=== PATIENT | male | born 1945 | race Caucasian/White ===

== ENCOUNTER 2025-11-17 10:00 | Emergency (ER) | payer OTHER, SELFPAY ==
--- OUTSIDE RECORDS SUMMARY | 2025-11-17 10:02 | XMS_ITS | Encounter Summary ---
Author Organization [facility] Address [address] [place] [address] Care Team Providers Care Cherry Picker Operator Name Role Phone Shiraz Reed MD Unavailable [phone] Aubrey Vanegas MD Primary Care Provider Cl Bourgeois MD Primary Care Provider [phone] Reason for Referral * Consultation (Routine) - Closed Specialty Diagnoses / Procedures Referred By Contac t Referred To Contact Internal Medicine Diagnoses Encounter for generalized [place] [address] [address] Phone: tel: fax: [place] [id number] [address] Phone: tel: fax: Referral ID Status Reason Start Date Expiration Date V isits Requested Visits Authorized [id number] Closed Specialty Services Required 08/11/2021 08/11/2022 99 99 Encounter Details Date Type Department Care Team (Latest Contact Info) Description 08/12/2021 Order Software Technical Lead [facility] [id number] [facility] [address] [place] [id number] [place] [id number] [address] Encounter for generalized patient complaints (Primary Dx) Social History Tobacco Use Types Packs/Day Years Used Date Smoking Tobacco: Former Cigarettes 1.5 30 1 970 - 2000 Smokeless Tobacco: Never Alcohol Use Standard Drinks/Week Comments Yes 14 (1 standard drink = 0.6 oz pu re alcohol) PHQ-2 Answer Date Recorded PHQ-2 Score 0 01/06/2021 Sex and Gender Information Value Date Recorded Sex Assigned at Not on file Legal Sex Male 11:34 AM PDT Gender Identity Male 11/18/2018 3:17 PM PST Sexual Orientation Not on file COVID-19 Exposure Response Date Recorded In the last month, have you been in contact with someone who was confirmed or suspected to have Coronavirus / COVID-19? No / Unsure 07/19/2021 10:51 AM PDT documented as of this encounter Plan of Treatment Scheduled Referrals Name Type Priority Associated Diagnoses Orde r Schedule Ambulatory referral to Rheumatology Outpatient Referral Routine Encounter for generalized patient complaints Ordered: 08/12/2021 documented as of this encounter Visit Diagnoses Diagnosis Encounter for generalized patient complaints- Primary documented in this encounter Care Teams Cherry Picker Operator Relationship Specialty Start [place] [address] [address] PCP - General Internal Medicine 07/15/18 12/01/24 Cl Bourgeois MD [address], [facility] [address] [place] [address] PCP - General Family Medicine 12/02/24 Shiraz Reed MD Consulting Physician Dermatology 12/11/17 documented as of this encounter
--- NOTE | 2025-11-17 10:24 | DI.RAD.S_ITS ---
PROCEDURE: XR WRIST RT MIN 3V INDICATIONS: injury TECHNIQUE: 4 views of the wrist were acquired. COMPARISON: None. FINDINGS AND IMPRESSION: No acute displaced fracture. No dislocation. Chondrocalcinosis at the TFCC region. Age-indeterminate bone fragments adjacent to the distal scaphoid. 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 If there is high concern for occult injury, consider repeat radiography in about 7 days or cross-sectional imaging. Dictated by: Griffin Briscoe M.D. on 11/17/2025 at 11:17 Approved by: Griffin Briscoe M.D. on 11/17/2025 at 11:18
[2025-11-17 10:26] VITALS: BP 153/79; PULSE 78; RESP 18; TEMP 36.7; O2SAT 97; BMI 28.7
--- NOTE | 2025-11-17 12:03 | ED_ITS ---
HPI - Extremity Injury (Upper) General Chief Complaint: Extremity Injury, Upper Stated Complaint: RT WRIST PX POSS BROKEN/STRAIN Time Seen by Provider: 11/17/25 11:36 Source: patient Mode of arrival: Family Vehicle History of Present Illness HPI narrative: Mr. Flores is a very pleasant 80-year-old male with no reported past medical history presents to the emergency department for right wrist injury that occurred yesterday. Patient was using a power drill when the bit got stuck causing the drill to start spinning while he continued to hold onto it. Therefore his wrist got twisted/spun around. Since that he has had pain and swelling of the right wrist. Pain is primarily at the base of the thumb. No open wounds. No numbness tingling weakness of the fingers. He does have pain with flexion extension of the wrist and with movement of the thumb. No blood thinners. No prior injury to this wrist. He is right-hand dominant. Related Data Previous Rx's ?Medication ?Instructions ?Recorded amlodipine 5 mg tablet 5 mg PO DAILY #60 tabs 11/03 pantoprazole 40 mg tablet,delayed 40 mg PO DAILY #90 t abs 11/03/25 release diclofenac potassium 50 mg tablet 50 mg PO TID PRN russell n #90 tabs 11/05/25 hydrocodone 5 mg-acetaminophen 325 1 tab PO Q4-6H PRN pain #12 tabs 11/17/25 mg tablet Allergies Allergy/AdvReac Type Severity Reaction Status Date / Time Penicillins Allergy Anaphylaxis Verified 11/17/25 10:26 Review of Systems Review of Systems ROS Unobtainable: All systems reviewed & are unremarkable except as noted in HPI and below Patient History Social History Smoking Status: Former smoker Smoking Status: Former smoker tobacco type: cigarettes Alcohol type: wine Exam Narrative Exam Narrative: GENERAL: 80 year old patient appears stated age. Well-developed patient, in no acute distress. HEAD: Atraumatic. Normocephalic. CARDIOVASCULAR: Regular rate RESPIRATORY: ?Nonlabored respirations. ?Speaking in clear, full sentences. EXTREMITIES: Mild edema of right wrist. Patient has focal pain at the base of the right thumb and in the snuffbox region. He has pain with flexion-extension of the thumb and flexion-extension of the wrist. No tenderness to palpation of the ulnar side of the wrist, the metatarsals or the phalanxes. No open wounds or obvious deformities. He has 2+ radial pulse and brisk cap refill in all fingertips. NEURO: AOx3. ?Clear speech. ?Sensation intact to light touch in all fingertips. SKIN: No rash or erythema of visible areas Initial Vital Signs Initial Vital Signs: Vital Signs Temperature 98.1 F 11/17/25 10:26 Pulse Rate 78 11/17/25 10:26 Respiratory Rate 18 11/17/25 10:26 Blood Pressure 153/79 H 11/17/25 10:26 Pulse Oximetry 97 11/17/25 10:26 Oxygen Delivery Method Room Air 11/17/25 10:26 Course Orders Ordered: ED Orders 11/17/25 10:24 XR wrist RT min 3V Stat Discontinued Medications Hydrocodone Bitart/Acetaminophen (Hydrocodone/Acet 5/325 Tablet) 1 tab PO NOW ONE Stop: 11/17/25 12:10 Last Admin: 11/17/25 12:46 Dose: 1 tab Documented By: ARDEN Vital Signs Vital signs: Vital Signs - 8 hr 11/17/25 12:49 Pulse Rate 83 Respiratory Rate 18 Blood Pressure 146/80 H Pulse Oximetry 94 Oxygen Delivery Method Room Air MDM - Extremity Injury (Upper) Medical Records Medical records narrative: None Imaging Data Right Wrist XR: Radiologist's Impression: PROCEDURE: XR WRIST RT MIN 3V INDICATIONS: injury TECHNIQUE: 4 views of the wrist were acquired. COMPARISON: None. FINDINGS AND IMPRESSION: No acute displaced fracture. No dislocation. Chondrocalcinosis at the TFCC region. Age-indeterminate bone fragments adjacent to the distal scaphoid. 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 If there is high concern for occult injury, consider repeat radiography in about 7 days or cross-sectional imaging. Dictated by: Griffin Briscoe M.D. on 11/17/2025 at 11:17 Approved by: Griffin Briscoe M.D. on 11/17/2025 at 11:18 [facility] Narrative Medical decision making narrative: 80-year-old male with no reported past medical history presents to the emergency department for right wrist injury that occurred yesterday. Differential diagnosis includes but isn't limited to right wrist sprain, strain, fracture, dislocation, etc. On exam patient is in no acute distress, not toxic appearing, vital signs appropriate. He has swelling and tenderness on the radial aspect of his right wrist and snuffbox tenderness. He is neurovascularly intact. He has no open wounds or deformities. X-ray right wrist was obtained revealing No acute displaced fracture. No dislocation. Chondrocalcinosis at the TFCC region. Age-indeterminate bone fragments adjacent to the distal scaphoid. 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 If there is high concern for occult injury, consider repeat radiography in about 7 days or cross-sectional imaging. 1220 discussed the case with the orthopedic surgeon on-call, Dr. Sesay. Given patient's snuffbox tenderness and age indeterminate bone fragments adjacent to the distal scaphoid, we will treat with Velcro thumb spica splint and ortho fol low up in 1-2 weeks. Recommended patient treat with ibuprofen and acetaminophen, hydrocodone for breakthrough pain. First dose of pain medicine given in the ED, his is here to drive him home. Thumb spica splint applied, he is neurovascularly intact both before and after application of the splint. Discussed ER return precautions and ortho follow up. Discussed risks of narcotics. Patient verbalized understanding of all information agreeable with the plan. He is stable for discharge home with his . Discharge Plan Departure Patient Disposition: Home Clinical Impression: Closed fracture of scaphoid of right wrist Qualifiers: Encounter type: initial encounter Scaphoid bone location: distal pole Fracture alignment: nondisplaced Qualified Code(s): S62.014A - Nondisplaced fracture of distal pole of navicular [scaphoid] bone of right wrist, initial encounter for closed fracture Injury of wrist, right Qualifiers: Encounter type: initial encounter Qualified Code(s): S69.91XA - Unspecified injury of right wrist, hand and finger(s), initial encounter Instructions: DI for Wrist Fracture Activity Restrictions/Additional Instructions: Dear Mark, Thank you for coming to the emergency department. I am sorry had an injury to right wrist. 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 I spoke with the orthopedic surgeon, Dr. Sesay. Please follow up with [facility] in 1-2 weeks. Please treat the splint like a cast and keep it on at all times. Please use RICE therapy for your pain in addition to ibuprofen/acetaminophen. Rest the painful area. Ice the area of pain/swelling for at least 15 minutes, 4x a day. Compress the area of swelling using a brace, wrap, or splint if applied. Elevate the painful or swollen extremity by supporting it above the level of the heart with pillows when sitting or laying. You have been prescribed a short course of narcotic medications. These are potentially dangerous and addictive medications that should be used carefully. While on these medications you cannot drive or operate heavy machinery. Additionally, you cannot sign legal documents or perform any duties such as this. Many people get constipated on narcotic medications so it would be advisable to discuss stool softeners with the pharmacist when you peanut picker your prescription. Please understand that we cannot provide further refills of narcotics or controlled substances through the ED and your pain management will need to be through your Primary Care Provider Please follow up with your primary care doctor within the next 2-3 days for ER follow-up. (If you do not have a PCP you can call [phone]. ?to schedule an appointment with an [facility] Primary Care Provider) IF YOU DEVELOP ANY NEW OR WORSENING SYMPTOMS, RETURN TO THE ER! Please read the attached instructions, they highlight more specific treatments and interventions for you at home. Thank you for letting me participate in your care, Irena Nieves PA-C Prescriptions: New hydrocodone-acetaminophen 5-325 mg tablet 1 tab PO Q4-6H PRN (Reason: pain) Qty: 12 0RF No Action amlodipine 5 mg tablet 5 mg PO DAILY Qty: 60 1RF pantoprazole 40 mg tablet,delayed release (DR/EC) 40 mg PO DAILY Qty: 90 1RF diclofenac potassium 50 mg tablet 50 mg PO TID PRN (Reason: pain) Qty: 90 1RF Referrals: Kallie Sesay DO [Physician, Orthopedic Surgery] Referral Note: Right wrist injury Stand Alone Forms: Patient Portal/API
--- NOTE | 2025-11-17 12:48 | PC.NURSE ---
Patient evaluated, treated and discharged by provider prior to nursing assessment.
[2025-11-17 12:49] VITALS: BP 146/80; PULSE 83; RESP 18; O2SAT 94
== END 2025-11-17 12:48 | disposition home or self-care (01) ==
PROVIDERS: Emergency Provider Physician Assistant
DX: S62.014A Nondisplaced fracture of distal pole of navicular [scaphoid] bone of right wrist, initial encounter for closed fracture (principal); S69.91XA Unspecified injury of right wrist, hand and finger(s), initial encounter; X50.1XXA Overexertion from prolonged static or awkward postures, initial encounter
CPT/HCPCS: 73110; 99283